=== PATIENT | female | born 1975 | race Two or more races ===

== ENCOUNTER 2023-03-24 18:05 | Emergency (ER) | payer MEDICAID ==
[~2023-03-24] VITALS: Ht 165.1 cm; Wt 69.4 kg
[2023-03-25] MEDS ORDERED: ZOFR4T PO (00:58)
[2023-03-25] MEDS ORDERED: DICY10CA PO (00:58)
[2023-03-25] MEDS ORDERED: BISA1TAB6 PO (00:58)
[2023-03-25] MEDS ORDERED: HYDR25SU21 PR (00:59)
[2023-03-25] MEDS ORDERED: LACTULOSE 20Gm/30ML SOLN PO ONE (01:00)
[2023-03-25] MEDS ORDERED: ONDANSETRON HCL 4 MG/2 ML VIAL IV ONE (01:00)
[2023-03-25] MEDS ORDERED: HYDROcodone-ACET 10/325MG TAB PO ONE (01:00)
[2023-03-25 01:12] VITALS: BP 104/73; PULSE 77; RESP 18; TEMP 97.8; O2SAT 97
== END 2023-03-25 01:17 | disposition home or self-care (01) ==
LOC: ER 18:05
DX: K62.3 Rectal prolapse (principal); E11.9 Type 2 diabetes mellitus without complications; E78.5 Hyperlipidemia, unspecified; Z79.899 Other long term (current) drug therapy

== ENCOUNTER 2023-11-28 02:22 | Emergency (ER) | payer MEDICAID ==
[~2023-11-28] VITALS: Ht 165.1 cm; Wt 73.0 kg
[~2023-11-28 02:22] MED LIST: BISA1TAB6 PO; DICY10CA PO; HYDR25SU21 PR; ZOFR4T PO
[2023-11-28 03:52] LABS: Basophils # (auto) 0 10 ^3/uL (0-0.2); Basophils % (auto) 0.7 % (0.0-2.0); Eosinophils # (auto) 0.1 10 ^3/uL (0-0.8); Eosinophils % (auto) 1.4 % (0.0-7.0); Hematocrit 42.1 % (36.0-46.0); Hemoglobin 13.7 g/dL (12.2-16.2); Lymphocytes # (auto) 2.5 10 ^3/uL (0.4-5.4); Lymphocytes % (auto) 38.1 % (10.0-50.0); Mean Corpuscular Hemoglobin 28.3 pg (28.0-32.0); Mean Corpuscular Hgb Conc. 32.5 g/dL (32.0-36.0); Mean Corpuscular Volume 87.2 fL (80.0-100.0); Monocytes # (auto) 0.7 10 ^3/uL (0-1.3); Neutrophils # (auto) 3.2 10 ^3/uL (1.6-8.6); Neutrophils % (auto) 49.8 % (37.0-80.0); Red Blood Cells 4.83 10^6/uL (4.0-5.20); Red Cell Distribution Width 13.4 % (11.8-14.3); White Blood Cell 6.5 10^3/uL (4.4-10.8)
[2023-11-28 04:09] LABS: Alanine Aminotransferase 22 U/L (7-40); Albumin 4.5 g/dL (3.2-4.8); Alkaline Phosphatase 88 U/L (46-116); Anion Gap 5 (5-15); Aspartate Aminotransferase 19 U/L (13-40); Bilirubin, Total 0.5 mg/dL (0.2-1.0); Blood Urea Nitrogen 11 mg/dL (9-23); Calcium 9.5 mg/dL (8.7-10.4); Carbon Dioxide 28 mmol/L (20-30); Chloride 107 mmol/L (98-107); Glucose 115 mg/dL (74-106); Potassium 4.1 mmol/L (3.5-5.1); Sodium 140 mmol/L (136-145); Total Protein 7.3 g/dL (5.7-8.2)
[2023-11-28] MEDS: PANTOPRAZOLE 40 MG/10 ML VIAL INJ IV ONE (04:26)
[2023-11-28] MEDS: ONDANSETRON HCL 4 MG/2 ML VIAL IV ONE (04:26)
[2023-11-28] MEDS: MORPHINE SULFATE 4 MG/ML SYR/VIAL IV ONE (04:26)
[2023-11-28 04:30] VITALS: PULSE 75; RESP 18; O2SAT 97
[2023-11-28 04:49] LABS: INR 1.02 (0.9-1.15); Prothrombin Time 10.8 sec (9.3-11.8)
[2023-11-28 05:21] VITALS: TEMP 97.8
[2023-11-28 05:22] VITALS: PULSE 61; RESP 19; O2SAT 94
[2023-11-28] MEDS ORDERED: DOCU-94 PO (06:31)
[2023-11-28] MEDS ORDERED: ACET-1304 PO (06:31)
[2023-11-28 07:00] VITALS: BP 106/60; PULSE 66; RESP 13; O2SAT 97
== END 2023-11-28 07:35 | disposition home or self-care (01) ==
LOC: ER 02:22
DX: K62.3 Rectal prolapse (principal); K62.5 Hemorrhage of anus and rectum
CPT/HCPCS: 36415; 74176; 80053; 85025; 85610; 85730; 96374; 96375; 99285; C9113; J2270; J2405